=== PATIENT | female | born 1970 | race Caucasian/White ===

== ENCOUNTER 2017-05-06 21:22 | Inpatient (IN) | payer OTHER, SELFPAY ==
[~2017-05-06 21:22] MED LIST: ISOVUE-370 76%-LOCM 1 ML ONE
[2017-05-06] MEDS ORDERED: Acetaminophen 500 MG TAB ONE (22:16)
[2017-05-06 22:40] LABS: INR-International Normal Ratio 1.2; PTT 34.2 SEC (22.9-36.1); Prothrombin Time 15.4 SEC (12.0-14.7)
[2017-05-06 22:53] LABS: ALT (SGPT) 33 U/L (8-55); AST (SGOT) 28 U/L (5-34); Albumin 3.5 g/dL (3.5-5.0); Alkaline Phosphatase 125 U/L (40-150); Anion Gap 13 mmol/L (10-20); BUN (Urea Nitrogen) 13 mg/dL (7.0-18.7); Bilirubin, Total 0.6 mg/dL (0.2-1.2); Calc. Creatinine Clearance 0 mL/min (70-130); Calcium 9.5 mg/dL (7.8-10.44); Carbon Dioxide 22 mmol/L (22-29); Chloride 105 mmol/L (98-107); Estimated GFR-MDRD 78; Globulin 3.1 g/dL (2.4-3.5); Glucose 168 mg/dL (70-105); Potassium 3.4 mmol/L (3.5-5.1); Protein, Total 6.6 g/dL (6.0-8.3); Sodium 137 mmol/L (136-145)
[2017-05-06 22:58] LABS: CKMB 0.5 ng/mL (0-6.6); Troponin I Less than 0.010 ng/mL (< 0.028)
--- NOTE | 2017-05-06 23:47 | CT ---
CT PELVIS WITH CONTRAST: 05/06/17 HISTORY: 46-year-old female with abscess of the left buttock, causing pain, swelling and fever. COMPARISON: None. FINDINGS: There is soft tissue density thickening at the intergluteal fold, especially the left side, with a tr ansverse dimension of approximately 2.5 cm, and density of 45 Hounsfield units. The soft tissue thick ening contiguosly involves the perineum. Adjacent to that, there is extensive fat stranding presentin g edema, in the fat of the left buttock lateral to the left intergluteal fold, with left sided skin t hickening. There is milder fat stranding representing edema in the contralateral right buttock fat. Within the left posterior aspect of the pelvic cavity, there is fat stranding and what appears to be a small amount of free fluid. There is a minimal amount of such free fluid in the contralateral right side. Urinary bladder is normal. The uterus is visualized, but no adnexal mass is identified. No sig ns of acute colonic diverticulitis. Normal appendix. No destructive osseous lesion. IMPRESSION: 1. Soft tissue thickening suggestive of cellulitis or phlegmon at the intergluteal fold, especia lly the left side, and edema in the surrounding fatty tissues of the buttocks, left greater than righ t. 2. No evidence of drainable abscess. POS: ALEJANDRA
[2017-05-07] MEDS ORDERED: Ondansetron HCl/PF 4 MG/2 ML Vial ONE (00:13)
[2017-05-07] MEDS ORDERED: Morphine 4 MG/ML VIAL ONE (00:13)
[2017-05-07 00:16] LABS: Bilirubin Negative (Negative); Blood, Urine Trace (Negative); Clarity CLEAR (Clear); Glucose, Urine (Dipstick) Negative (Negative); Leukocyte Negative (Negative); Nitrite Negative (Negative); Protein, Urine (Dipstick) Negative (Neg-Trace); Specific Gravity, Urine 1.027 (1.002-1.036); pH, Urine 5.5 (5.0-9.0)
[2017-05-07 00:19] LABS: Bacteria/HPF None Seen HPF (None Seen); Hyaline Casts/LPF 0-3 HYALINE CAST LPF (0-3 Hyaline); Squamous Epithelial 0-3 HPF (0-3); WBC/HPF 0-3 HPF (0-3)
[2017-05-07 00:28] LABS: Hemoglobin 12.7 g/dL (12.0-16.0); Mean Corpuscular Hemoglobin 28.3 pg (27.0-31.0); Mean Corpuscular Volume 85.9 fl (81.0-99.0); Mean Platelet Volume 7.9 fL (7.4-10.4); Platelet Count 217 thou/uL (130-400); RBC Distribution Width 13.3 % (11.5-14.5); Red Blood Cell (RBC) Count 4.47 mill/uL (4.20-5.40); White Blood Cell (WBC) Count 20.9 thou/uL (4.8-10.8)
[2017-05-07 00:44] LABS: Band 23 % (5-11); Eosinophils 2 % (0-10); Lymphocytes 5 % (21-51); MDiff Complete? YES; Monocytes 4 % (0-10); Neutrophil 66 % (42-75)
[2017-05-07] MEDS ORDERED: Ondansetron HCl/PF 4 MG/2 ML Vial IVP PRN (07:51)
[2017-05-07] MEDS ORDERED: Acetaminophen 325 MG TAB PO PRN (07:51)
[2017-05-07] MEDS ORDERED: Ondansetron ODT 4 MG TAB SL PRN (07:51)
[2017-05-07 08:02] VITALS: BMI 37.7
[2017-05-07] MEDS ORDERED: Dextrose 5% in Water 1,000 ML IV PRN (08:46)
[2017-05-07] MEDS ORDERED: Calcium Carbonate 500 MG ChewTAB PO PRN (08:46)
[2017-05-07] MEDS ORDERED: Mag-Al 1200 mg/1200 mg/30 ML UDCUP PO PRN (08:46)
[2017-05-07] MEDS ORDERED: Diabetic Tussin 200 MG/10 ML UDCUP PO PRN (08:46)
[2017-05-07] MEDS ORDERED: Loratadine 10 MG TAB PO PRN (08:46)
[2017-05-07] MEDS ORDERED: Bisacodyl 5 MG TAB PO PRN ×2 (08:46)
[2017-05-07] MEDS ORDERED: Senokot 8.6 MG TAB PO PRN ×2 (08:46)
[2017-05-07] MEDS ORDERED: Nitroglycerin 0.4 MG TAB (25 Tab Bottle) SL PRN (08:46)
[2017-05-07] MEDS ORDERED: Dextrose 50% Abboject 50 ML SYRINGE SLOW IVP PRN (08:46)
[2017-05-07] MEDS ORDERED: cloNIDine 0.1 MG TAB PO PRN (08:46)
[2017-05-07] MEDS ORDERED: Benzonatate 100 MG CAP PO PRN (08:46)
[2017-05-07] MEDS ORDERED: hydrALAZINE 20 MG/ML VIAL SLOW IVP PRN (08:46)
[2017-05-07] MEDS ORDERED: HumaLOG 300 UNITS/3 ML VIAL SC PRN ×2 (08:46)
[2017-05-07] MEDS ORDERED: Vancomycin HCl 1 GM in Premix Bag 1 BAG IVPB SCH (09:00)
[2017-05-07] MEDS: Acetaminophen 325 MG TAB PO PRN (09:08)
[2017-05-07] MEDS: Enoxaparin Sodium 40 MG/0.4 ML SYRINGE SC SCH (09:08)
[2017-05-07] MEDS ORDERED: FLU VACC QS2017-18 36 mo. & older 0.5 ML SYRINGE IM ONE (09:45)
[2017-05-07] MEDS: Clindamycin/D5W 300 MG/50 ML BAG IVPB SCH ×2 (09:56→12:05)
[2017-05-07] MEDS: traMADol HCl 50 MG TAB PO PRN ×2 (09:56→17:27)
[2017-05-07] MEDS: Saccharomyces boulardii 250 MG CAP PO SCH (10:24)
[2017-05-07] MEDS ORDERED: Potassium Chloride 20 MEQ TAB PO SCH (11:00)
[2017-05-07] MEDS: HYDROcodone/Acetaminophen 5/325 mg Tablet PO PRN ×3 (12:14→21:17)
[2017-05-07] MEDS ORDERED: Fluconazole In NaCl,Iso-Osm 200 MG in Premix Bag 1 BAG IVPB SCH (12:15)
--- NOTE | 2017-05-07 12:49 | HP ---
PRIMARY CARE PHYSICIAN: [facility]. CHIEF COMPLAINT: Pain, redness and warmth of the left buttock for 3 days. HISTORY OF PRESENTING ILLNESS: Ms. Bray is a pleasant 46-year-old female with past medical history of non-insulin dependent diabetes, hypothyroidism, chronic iron deficiency anemia and lupus as per the patient, who presented to the ER with the above-mentioned complaint. History is mainly obtained by the patient herself. According to Ms. Bray, she started to have redness and pain in the left butt cheek for the last 3 days. She reports that she always has diarrhea with her menstrual cycle and also has hemorrhoids and this was happening earlier this week again. This might be the inciting factor that she could recall. She started to have some low grade fevers 2 days ago. She denies any abdominal pain or chest pain. She was a little short of breath. She takes metformin for her diabetes. She denies any sick contacts. She denied any boils or trauma to her gluteal region. She denies any dysuria, frequency, urgency or hematuria. She denies any blood in her stools. Upon presentation to the emergency room, she was hemodynamically stable, but somewhat tachycardic with a heart rate of 132. Physical examination revealed erythema and warmth of the left buttock and she underwent a CT scan of the abdomen and pelvis. This showed cellulitis and phlegmon at the intergluteal fold, especially on the left side and edema in the surrounding fatty tissue without any evidence of drainable abscess. She was given vancomycin and is now being admitted for cellulitis. PAST MEDICAL HISTORY: 1. Hypothyroidism. 2. Noninsulin dependent diabetes mellitus. 3. Lupus. According to the patient, the patient was diagnosed at the age of 16 and was on Plaquenil and steroids at one point of time, but then she lost her insurance and is currently not on any medications. 4. Iron deficiency anemia. 5. Scoliosis. 6. Degenerative disk disorder. PAST SURGICAL HISTORY: 1. section x2. 2. Tubal ligation. PSYCHIATRIC HISTORY: Bipolar disorder and depression. SOCIAL HISTORY: No history of drug, tobacco or alcohol abuse. FAMILY HISTORY: No significant family history of premature coronary artery disease or stroke. ALLERGIES: Include; 1. ACETAMINOPHEN. 2. AMOXICILLIN. 3. HYDROCODONE. 4. LATEX. 5. PHENOBARBITAL. 6. SULFONAMIDES. CURRENT MEDICATIONS: Metformin 500 mg b.i.d., multivitamin daily, ferrous sulfate 325 mg b.i.d. and levothyroxine 50 mcg daily. REVIEW OF SYSTEMS: It is negative except for those mentioned in the history and physical. Constitutional: Weight loss or gain, ability to conduct usual activities. Skin: Rash, itching. Eyes: Double vision, pain. ENT/Mouth: Nose bleeding, neck stiffness, pain, tenderness. Cardiovascular: Palpitations, dyspnea on exertion, orthopnea. Respiratory: Shortness of breath, wheezing, cough, hemoptysis, fever or night sweats. Gastrointestinal: Poor appetite, abdominal pain, heartburn, nausea, vomiting, constipation, or diarrhea. Genitourinary: Urgency, frequency, dysuria, nocturia. Musculoskeletal: Pain, swelling. Neurologic/Psychiatric: Anxiety, depression. Allergy/Immunologic: Skin rash, bleeding tendency. LABORATORY DATA: Her CBC shows WBCs of 20.9 with 23% bands. Serum chemistries showed potassium of 3.4, blood sugar 160 and lactic acid 1.5. Urinalysis show 11-20 rbc's and trace blood. IMAGING DATA: CT scan of the abdomen and pelvis as per the HPI. PHYSICAL EXAMINATION: VITAL SIGNS: Most recent include temperature 97.5, heart rate 101, respirations 17, saturating 98% on room air and blood pressure 116/58. GENERAL: No acute distress, lying on the side of the cellulitis. Awake, alert and oriented x3. HEENT: Mucous membrane is moist and pink. No oropharyngeal exudate or erythema. Head is normocephalic and atraumatic. Pupils are equal, reactive to light and accommodation. Extraocular movements are intact. NECK: Supple without any lymphadenopathy, JVD or bruit. CHEST: Clear to auscultation without any wheezing, rales or rhonchi. Rate and rhythm is regular without any murmur, rubs or gallops. ABDOMEN: Soft, nontender and nondistended with positive bowel sounds. EXTREMITIES: Free of any cyanosis, clubbing or edema. GENITOURINARY: She has a diffuse rash with pitting on the left buttock. It extends and covers the entire buttock and extending anteriorly to involve the vulva bilaterally. It is hot and very tender to palpation. NEUROLOGIC: Nonfocal. PSYCHIATRIC: Normal affect. IMPRESSION AND PLAN: 1. Left buttock cellulitis and Sepsis.. She meets the sepsis criteria at this time. She will be started on broad-spectrum IV antibiotic with clindamycin. I will also add antifungal coverage as yeast infection can also not be ruled out in this area. She will also be started on some gentle IV fluids as her tachycardia has not completely resolved. She is encouraged for oral intake. Blood cultures have been obtained and we will follow the results though she does not look septicemic. She will be admitted on medical floor. 2. Diabetes mellitus. The patient will not be taking metformin as she has received dye for the CT scan. We will cover her with insulin sliding scale. 3. Iron deficiency anemia. Continue with ferrous sulfate. 4. Hypothyroidism. Continue with levothyroxine. 5. History of lupus. I have encouraged the patient to get a referral to Rheumatology as an outpatient. Unfortunately, she does not have insurance and it will be hard for her to get into the Rheumatology clinics. 6. Deep venous thrombosis and gastrointestinal prophylaxis. 7. Add p.r.n. medication and supportive care. DISPOSITION: Ms. Bray is currently being admitted for sepsis and buttock cellulitis. Estimated length of stay is more than 2 midnights at this time. MTDD
[2017-05-07] MEDS: Sodium Chloride 0.9% 1,000 ML IV SCH (13:42)
--- NOTE | 2017-05-07 15:52 | CON ---
DATE OF CONSULTATION: 05/07/2017 REASON FOR CONSULTATION: Inflammatory process of left gluteal region. HISTORY OF PRESENT ILLNESS: A 46-year-old patient who has a history of systemic lupus erythematosus diagnosed at [facility] in [place] at the age of 16. Apparently, she was treated with prednisone and Plaquenil and then going to her recollection, she had skin, kidney, and joint manifestations at that time. The patient has not taken medications over the past many years, still has some arthralgias, but no other manifestations may be some skin rash here and there. Patient also has a history of type 2 diabetes mellitus and developed inflammatory process in left gluteal region. She is not sure what happened. She thinks she might have been a spider bite. No recollection of any trauma to the area. She had some diarrhea which is intermittent and occurs usually with her menstrual cycle. There was progression in the pain and the swelling and she was admitted after evaluation in the emergency room. She also had also associated low grade temperature elevation. No headaches, visual symptoms, sore throat, odynophagia, dysphagia, no cough, no sputum production, no chest pain. No abdominal pain, diarrhea. No genitourinary symptoms. No joint symptoms. May be minor arthralgias. No neurological symptoms. PAST MEDICAL HISTORY: Hypothyroidism, type 2 diabetes, systemic lupus erythematosus diagnosed many years ago, not on therapy for quite a while without evidence of major recrudescence. PAST SURGICAL HISTORY: , tubal ligation. PSYCHIATRIC HISTORY: Bipolar disorder. ALLERGIES: ACETAMINOPHEN, PENICILLIN, LATEX, SULFONAMIDE. SOCIAL HISTORY: Noncontributory. 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 FAMILY HISTORY: Noncontributory. CURRENT MEDICATIONS: Clindamycin, Diflucan, metformin, multivitamins, levothyroxine, p.r.n. meds. PHYSICAL EXAMINATION: VITAL SIGNS: T-max 98.2, blood pressure 91/57, pulse 92, respirations 14, O2 sat 94%-98%. GENERAL: Appears in no distress. HEENT: Ocular movements are conjugate. Oral cavity normal. NECK: Supple. LUNGS: With symmetric clear breath sounds. HEART: S1, S2, regular rate. No S3, S4. ABDOMEN: Soft, nondistended or tender. No ascites. No bladder distention. EXTREMITIES: No joint inflammatory activity. Left gluteal region with area of induration and erythema measuring about 15 x 12 cm. Left gluteal fold extending inwards. Few pustules are noted on the surface of the skin. Pulses are 1+ in dorsalis pedis. She moves extremities equally. NEUROLOGIC: Cognitive function appears to be intact. LABORATORY DATA AND IMAGING DATA: White cell count 20.9, hemoglobin 12.7, platelets 270, 22% bands. Sodium 137, creatinine 0.8. Liver profile normal. Albumin 3.5. Urinalysis with 11-20 rbc's, 0-3 wbc's. Two sets of blood cultures are no growth to date. Urine culture no growth at 12 hours. She has had a pelvis CT which showed phlegmon described, but no obvious abscess. She has a wrist x-ray from last year with no abnormality noted. ASSESSMENT: 1. History of type 2 diabetes and history of systemic lupus erythematosus many years ago, not on treatment, and apparently in remission. 2. Abscess/phlegmon in left gluteal region. DISCUSSION: Most likely scenario is Staphylococcus aureus infection either MSSA or MRSA secondary to skin colonization by a pathogenic strain of Staph and minor skin injury or folliculitis. Switch her to iv vancomycin. Submit cultures from the areas of folliculitis. Transition to outpatient antimicrobial therapy once there is improvement in white cell count. May need surgical drainage eventually. Patient had blood cultures submitted and we will follow those to resolution. If blood cultures return positive, then she would require longer course of treatment. MTDD
[2017-05-07] MEDS ORDERED: Clindamycin/D5W 300 MG/50 ML BAG IVPB SCH (16:00)
[2017-05-07] MEDS: Vancomycin HCl 1.5 GM in Sodium Chloride 0.9% 250 ML 300 ML IVPB SCH (21:17)
[2017-05-07] MEDS: Nystatin Powder 15 GM BOT TOP SCH (21:19)
[2017-05-08] MEDS: Sodium Chloride 0.9% 1,000 ML IV SCH ×2 (02:58→17:19)
[2017-05-08] MEDS: HYDROcodone/Acetaminophen 5/325 mg Tablet PO PRN ×5 (04:24→20:58)
[2017-05-08 05:58] LABS: Anion Gap 13 mmol/L (10-20); BUN (Urea Nitrogen) 7 mg/dL (7.0-18.7); Calc. Creatinine Clearance 165 mL/min (70-130); Calcium 8.2 mg/dL (7.8-10.44); Carbon Dioxide 19 mmol/L (22-29); Chloride 111 mmol/L (98-107); Estimated GFR-MDRD 88; Glucose 97 mg/dL (70-105); Sodium 139 mmol/L (136-145)
[2017-05-08 06:22] LABS: Band 20 % (5-11); Eosinophils 2 % (0-10); Hemoglobin 10.9 g/dL (12.0-16.0); Lymphocytes 5 % (21-51); MDiff Complete? YES; Mean Corpuscular HGB CONC 32.3 g/dL (32.0-36.0); Mean Corpuscular Hemoglobin 28.3 pg (27.0-31.0); Mean Corpuscular Volume 87.6 fl (81.0-99.0); Mean Platelet Volume 7.4 fL (7.4-10.4); Metamyelocyte 1 % (0-0); Monocytes 14 % (0-10); Myelocyte 1 % (0-0); Neutrophil 57 % (42-75); PLT Morphology Comment Appears Adequate; Platelet Count 202 thou/uL (130-400); RBC Distribution Width 13.5 % (11.5-14.5); RBC Morphology Normal; Red Blood Cell (RBC) Count 3.86 mill/uL (4.20-5.40); White Blood Cell (WBC) Count 17.5 thou/uL (4.8-10.8)
[2017-05-08] MEDS: Vancomycin HCl 1.5 GM in Sodium Chloride 0.9% 250 ML 300 ML IVPB SCH ×2 (08:48→20:57)
[2017-05-08] MEDS: Ferrous Sulfate 325 MG TAB PO SCH (08:49)
[2017-05-08] MEDS: Multivit, Therapeutic 1 TAB PO SCH (08:49)
[2017-05-08] MEDS: Enoxaparin Sodium 40 MG/0.4 ML SYRINGE SC SCH (08:49)
[2017-05-08] MEDS: Saccharomyces boulardii 250 MG CAP PO SCH (08:57)
[2017-05-08] MEDS: Nystatin Powder 15 GM BOT TOP SCH ×2 (08:58→20:58)
[2017-05-08] MEDS ORDERED: Levothyroxine 100 MCG SDV FS SCH (09:00)
[2017-05-08] MEDS ORDERED: Non-Formulary Item 1 EACH (Multivitamin [Multi-Vitamin Daily] 1 TABLET) PO SCH (09:00)
[2017-05-08] MEDS ORDERED: Fluconazole 100 MG TAB PO SCH (09:00)
[2017-05-08] MEDS ORDERED: Non-Formulary Item 1 EACH (Ferrous Sulfate [Ferrous Sulfate] 325 MG) PO SCH (09:00)
--- NOTE | 2017-05-08 13:37 | PRG ---
DATE OF SERVICE: 05/08/2017 SUBJECTIVE: The patient is seen and examined at the bedside. She noticed some improvement. She is able to ambulate in the hallway. Her appetite is fair. She had bowel movements yesterday. OBJECTIVE: VITAL SIGNS: Blood pressure is 122/59, pulse is ranging from 95-118, temperature is 97.9, respirator y rate is 20, and pulse oximeter is 98% on room air. HEENT: Head is atraumatic, normocephalic. Eyes are PERRLA. Conjunctivae pinkish. Sclerae nonicter ic. Oral mucosa is moist. NECK: Supple, no lymphadenopathy. Thyroid is not palpable. LUNGS: Clear. HEART: S1, S2 normal, somewhat tachycardic. No S3, no S4, no murmur. ABDOMEN: Obese, soft, nontender. EXTREMITIES: Left buttock big approximately 8-10 inches x 8-10 inches indurated area. No open area present. NEUROLOGIC: She is alert and oriented x3. There is not any sensorimotor deficit present. Cranial n erves are intact. LABORATORY DATA: Showed white count is down to 17.5, hemoglobin 10.9, hematocrit 33.8, platelet coun t 102,000. Chemistry showed sodium of 139, potassium 4.0, chloride 111, CO2 19, BUN 7, creatinine 0. 72. Glycemia is ranging from 103 to 143. Microbiology showed bacterial culture of the left gluteal area showed gram positive cocci. Gram stain showed no WBCs, no organisms and 0-5 epithelial cells. IMPRESSION: 1. Left gluteal area phlegmon. 2. History of type 2 diabetes mellitus. 3. History of systemic lupus erythematosus, not on any current treatment. ASSESSMENT AND PLAN: The patient's condition is slightly improved. She was seen by Dr. Lemons who ch anged her antibiotic to vancomycin and ask for a surgical consultation. We awaiting for that. The f inal culture on her skin cellulitis is not back yet. We know it is gram positive cocci, but we do no t know whether it is MRSA or MSSA. We will continue vancomycin for now, we will continue current reg imen. Pain management. She is comfortable with the pain management at this point and we will contin ue her DVT prophylaxis with SCDs and Lovenox.
--- NOTE | 2017-05-08 15:50 | PRG ---
DATE OF SERVICE: 05/08/2017 SUBJECTIVE: Feeling about the same. Pain is still there are and quite significant. No respiratory symptoms or abdominal pain. Voiding without difficulty. OBJECTIVE: VITAL SIGNS: T-max 97.9, pulse 118, BP 123/59, temperature normal. SKIN: The skin exam shows the area of induration phlegmon extending towards the lower aspect of the left labia majora. The area is bit more consolidated now in terms of the induration. No obvious jennifer inage spots. LUNGS: Clear. S1, S2, regular rate. ABDOMEN: Soft, not distended, no bladder distention. LABORATORY DATA: White cell count 17.5, hemoglobin 10.7, platelets 202. Culture with gram positive cocci retrieved from the culture submitted yesterday. ASSESSMENT AND DISCUSSION: Likely abscess left gluteal region. We will request surgical consultatio n. Eventually probably will need a surgical I&D. Continue vancomycin until have the final results o f the identification and susceptibility testing for the organism.
[2017-05-08 20:22] LABS: Vancomycin, Trough 10.9 ug/mL
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
[2017-05-09] MEDS: Sodium Chloride 0.9% 1,000 ML IV SCH (00:09)
[2017-05-09] MEDS: HYDROcodone/Acetaminophen 5/325 mg Tablet PO PRN (01:15)
[2017-05-09] MEDS: Levothyroxine Sodium 50 MCG TAB PO SCH (06:08)
[2017-05-09 06:16] LABS: Band 10 % (5-11); Eosinophils 2 % (0-10); Hemoglobin 10.9 g/dL (12.0-16.0); Lymphocytes 7 % (21-51); MDiff Complete? YES; Mean Corpuscular Hemoglobin 27.7 pg (27.0-31.0); Mean Corpuscular Volume 86.5 fl (81.0-99.0); Mean Platelet Volume 6.8 fL (7.4-10.4); Monocytes 10 % (0-10); Neutrophil 71 % (42-75); PLT Morphology Comment Appears Adequate; Platelet Count 250 thou/uL (130-400); RBC Distribution Width 13.4 % (11.5-14.5); Red Blood Cell (RBC) Count 3.94 mill/uL (4.20-5.40); White Blood Cell (WBC) Count 17.1 thou/uL (4.8-10.8)
[2017-05-09] MEDS ORDERED: PROPOFOL 200 MG/20 ML VIAL ONE (06:35)
[2017-05-09] MEDS ORDERED: Dexamethasone 20 MG/5 ML VIAL ONE (06:35)
[2017-05-09] MEDS ORDERED: Lidocaine 1% PF 5 ML VIAL ONE (06:35)
[2017-05-09] MEDS ORDERED: Glycopyrrolate 0.2 MG/ML 5 ML SYRINGE ONE (06:35)
[2017-05-09] MEDS ORDERED: Ondansetron HCl/PF 4 MG/2 ML Vial ONE ×2 (06:35→11:11)
[2017-05-09] MEDS ORDERED: Ketorolac Tromethamine 30 MG/ML VIAL ONE (06:35)
[2017-05-09] MEDS ORDERED: Vancomycin HCl 1.75 GM in Sodium Chloride 0.9% 500 ML IVPB SCH (09:00)
[2017-05-09] MEDS: Morphine 5 MG/ML SYRINGE SLOW IVP PRN (09:28)
[2017-05-09] MEDS: Multivit, Therapeutic 1 TAB PO SCH (09:34)
[2017-05-09] MEDS: Enoxaparin Sodium 40 MG/0.4 ML SYRINGE SC SCH (09:34)
[2017-05-09] MEDS: Ferrous Sulfate 325 MG TAB PO SCH (09:34)
[2017-05-09] MEDS: Saccharomyces boulardii 250 MG CAP PO SCH (09:35)
[2017-05-09] MEDS: Nystatin Powder 15 GM BOT TOP SCH ×2 (10:12→22:52)
[2017-05-09] MEDS ORDERED: Fentanyl 250 MCG/5 ML VIAL ONE (11:11)
[2017-05-09] MEDS ORDERED: Bupivacaine HCl 0.5%/Epinephrine 1:200,000/PF 30 ml Vial ONE (11:14)
[2017-05-09] MEDS ORDERED: Lidocaine 2% 10 ML INJ ONE (11:14)
[2017-05-09] MEDS ORDERED: Promethazine HCl 25 MG/ML VIAL SLOW IVP PRN (12:32)
[2017-05-09] MEDS ORDERED: Ondansetron HCl/PF 4 MG/2 ML Vial IVP PRN (12:32)
[2017-05-09] MEDS ORDERED: Promethazine HCl 25 MG/ML VIAL IM PRN (12:32)
[2017-05-09] MEDS ORDERED: Ibuprofen 600 MG TAB PO PRN (12:39)
[2017-05-09] MEDS ORDERED: Acetaminophen 500 MG TAB PO PRN (12:39)
[2017-05-09] MEDS ORDERED: traMADol HCl 50 MG TAB PO PRN (12:39)
--- NOTE | 2017-05-09 12:39 | PDOC.PN ---
- Subjective Encounter Start Date: 05/09/17 Encounter Start Time: 09:15 -: old records requested/rev Patient seen and examined. No new complaints. No overnight events - Objective MAR Reviewed: Yes Vital Signs & Weight: Vital Signs (12 hours) Temp Pulse Resp BP Pulse Ox 05/09/17 08:56 98.3 F 66 20 123/73 93 L 05/09/17 07:45 98.0 F 97 18 05/09/17 04:00 98.0 F 97 18 107/55 L Weight Weight 233 lb 11.04 oz I&O: 05/08/17 05/09/17 05/10/17 06:59 06:59 06:59 Intake Total 1850 2680 Balance 1850 2680 Result Diagrams: 05/09/17 05:28 05/08/17 05:26 Additional Labs: Accuchecks 05/09/17 05/09/17 05/08/17 09:08 05:45 21:12 POC Glucose 98 102 127 H 05/08/17 16:57 POC Glucose 99 Phys Exam - Physical Examination Constitutional: NAD HEENT: PERRLA, moist MMs, sclera anicteric Neck: no JVD, supple Respiratory: no wheezing, no rales, no rhonchi Cardiovascular: RRR, no significant murmur, no rub Gastrointestinal: soft, non-tender, no distention, positive bowel sounds Musculoskeletal: no edema, pulses present Neurological: non-focal, normal sensation Lymphatic: no nodes Psychiatric: normal affect, A&O x 3 Skin: no rash, normal turgor Dx/Plan (1) Abscess, gluteal, left Code(s): L02.31 - CUTANEOUS ABSCESS OF BUTTOCK Status: Acute (2) Sepsis Code(s): A41.9 - SEPSIS, UNSPECIFIED ORGANISM Status: Acute (3) Anemia, normocytic normochromic Code(s): D64.9 - ANEMIA, UNSPECIFIED Status: Chronic (4) Obesity (BMI 30-39.9) Code(s): E66.9 - OBESITY, UNSPECIFIED Status: Chronic - Plan cont current plan of care, continue antibiotics * today plan for I & D * continue IV antibiotics as per dr herrera * wound care * medication reviewed as below * symptomatic treatment * pain control * follow culture. Review of Systems - Review of Systems ENT: negative: Ear Pain, Ear Discharge, Nose Pain, Nose Discharge, Nose Congestion, Mouth Pain, Mouth Swelling, Throat Pain, Throat Swelling, Other Respiratory: negative: Cough, Dry, Shortness of Breath, Hemoptysis, SOB with Excertion, Pleuritic Pain, Sputum, Wheezing Cardiovascular: negative: chest pain, palpitations, orthopnea, paroxysmal nocturnal dyspnea, edema, light headedness, other Gastrointestinal: negative: Nausea, Vomiting, Abdominal Pain, Diarrhea, Constipation, Melena, Hematochezia, Other Genitourinary: negative: Dysuria, Frequency, Incontinence, Hematuria, Retention , Other Musculoskeletal: negative: Neck Pain, Shoulder Pain, Arm Pain, Back Pain, Hand Pain, Leg Pain, Foot Pain, Other Skin: negative: Rash, Lesions, Nato, Bruising, Other - Medications/Allergies Allergies/Adverse Reactions: Allergies Allergy/AdvReac Type Severity Reaction Status Date / Time Penicillins Allergy Mild Verified 05/07/17 08:07 latex Allergy Unknown Verified 05/07/17 08:07 phenobarbital Allergy Unknown Verified 05/07/17 08:07 amoxicillin Allergy Verified 05/07/17 08:07 Sulfa (Sulfonamide Allergy Verified 05/07/17 08:07 Antibiotics) Medications: Current Medications Acetaminophen (Tylenol) 650 mg PO Q4H PRN PRN Reason: Headache/Fever or Pain Last Admin: 05/07/17 09:08 Dose: 650 mg Hydrocodone Bitart/Acetaminophen ([place] 5/325) 1 tab PO Q4H PRN PRN Reason: Moderate Pain (4-6) Last Admin: 05/09/17 01:15 Dose: 1 tab Al Hydroxide/Mg Hydroxide (Maalox) 30 ml PO Q6H PRN PRN Reason: Heartburn or Indigestion Benzonatate (Tessalon) 100 mg PO Q4H PRN PRN Reason: Cough Bisacodyl (Dulcolax) 10 mg PO DAILYPRN PRN PRN Reason: Constipation Last Admin: 05/07/17 16:54 Dose: 10 mg Calcium Carbonate (Tums) 1,000 mg PO Q4H PRN PRN Reason: Heartburn or Indigestion Clonidine (Catapres) 0.1 mg PO Q4H PRN PRN Reason: Systolic BP > 160 Dextrose/Water (Dextrose 50%) 25 gm SLOW IVP PRN PRN PRN Reason: Hypoglycemia Enoxaparin Sodium (Lovenox) 40 mg SC 0900 [facility] Last Admin: 05/09/17 09:34 Dose: Not Given Fentanyl (Pacu-Sublimaze) 50 mcg SLOW IVP Q10MIN PRN PRN Reason: Moderate to Severe Pain (6-10) Stop: 05/09/17 15:32 Ferrous Sulfate (Feosol) 325 mg PO DAILY [facility] Last Admin: 05/09/17 09:34 Dose: Not Given Glucagon (Glucagon) 1 mg IM PRN PRN PRN Reason: Hypoglycemia Guaifenesin (Robitussin Sf) 200 mg PO Q4H PRN PRN Reason: Cough Hydralazine HCl (Apresoline) 10 mg SLOW IVP Q4H PRN PRN Reason: Systolic BP > 170 Dextrose/Water (D5w) 1,000 mls @ 0 mls/hr IV .Q0M PRN; As Directed PRN Reason: Hypoglycemia Sodium Chloride (Normal Saline 0.9%) 1,000 mls @ 75 mls/hr IV .[id number] [facility] Last Admin: 05/09/17 00:09 Dose: 1,000 mls Vancomycin HCl 1.75 gm/ Sodium (Chloride) 500 mls @ 250 mls/hr IVPB Q12HR [facility] Last Admin: 05/09/17 09:34 Dose: 500 mls Insulin Human Lispro (Humalog) 0 units SC .MODERATE SLIDING SC PRN PRN Reason: Moderate Correctional Scale Insulin Human Lispro (Humalog) 0 units SC .BEDTIME SLIDING SC PRN PRN Reason: Bedtime Correctional Scale Levothyroxine Sodium (Synthroid) 50 mcg PO 0600 [facility] Last Admin: 05/09/17 06:08 Dose: 50 mcg Loratadine (Claritin) 10 mg PO DAILYPRN PRN PRN Reason: Sinus Symptoms Miscellaneous Medication (Pharmacy To Dose) 0 each IVPB ASDIR [facility] Morphine Sulfate (Morphine) 4 mg SLOW IVP Q4H PRN PRN Reason: Pain Last Admin: 05/09/17 09:28 Dose: 4 mg Multivitamins (Theragran) 1 tab PO DAILY [facility] Last Admin: 05/09/17 09:34 Dose: Not Given Nitroglycerin (Nitrostat) 0.4 mg SL Q5MIN PRN PRN Reason: Chest Pain Nystatin (Mycostatin Powder) 1 gm TOP BID [facility] Last Admin: 05/09/17 10:12 Dose: Not Given Ondansetron HCl (Zofran) 4 mg IVP Q6H PRN PRN Reason: Nausea/Vomiting Ondansetron HCl (Pacu-Zofran) 4 mg IVP ONE PRN PRN Reason: Nausea/Vomiting Stop: 05/09/17 15:32 Promethazine HCl (Pacu-Phenergan) 6.25 mg SLOW IVP ONE PRN PRN Reason: Nausea/Vomiting Stop: 05/09/17 15:32 Promethazine HCl (Pacu-Phenergan) 6.25 mg IM ONE PRN PRN Reason: Nausea/Vomiting Stop: 05/09/17 15:32 Saccharomyces Boulardii (Florastor) 250 mg PO DAILY [facility] Last Admin: 05/09/17 09:35 Dose: Not Given Senna (Senokot) 2 tab PO HSPRN PRN PRN Reason: Constipation Sodium Chloride (Flush - Normal Saline) 10 ml IVF Q12HR [facility] Last Admin: 05/09/17 09:35 Dose: Not Given Sodium Chloride (Flush - Normal Saline) 10 ml IVF PRN PRN PRN Reason: Saline Flush Tramadol HCl (Ultram) 50 mg PO Q4H PRN PRN Reason: Moderate Pain (4-6) Last Admin: 05/07/17 17:27 Dose: 50 mg
--- NOTE | 2017-05-09 15:57 | OP ---
DATE OF PROCEDURE: 05/09/2017 PREOPERATIVE DIAGNOSES: Left buttock abscess (seen yesterday, but not n.p.o.) and morbid obesity. PROCEDURE: Incision and drainage of left buttock abscess, wound 13 x 6 cm, not amenable to VAC dress ing. SURGEON: Zana Lopez M.D. ANESTHESIA: General. Local 0.5% Marcaine with epinephrine, 30 mL, mixed with 2% Xylocaine, 10 mL an d wound care. This wound packing will be left in place today, Friday. She can wash the wound with soap and water a nd bath (or in the hospital Sitz bath) or in the shower. While removing the packing, wash it with so ap and water. Do not replace packing, instead wash it daily with soap and water in the bath or showe r beginning tomorrow and use a Kotex pad or ABD pad to control the drainage. Follow up in my office in 1-2 weeks. She can be discharged home with oral antibiotics. She will be discharged home at any time. PROCEDURE IN DETAIL: Patient taken to the operating room under general anesthesia in the dorsal lith otomy position, her buttocks and vaginal area prepared with Betadine, draped in routine fashion in le ft buttock/perineal area. Incision made and carried down through the skin and subcutaneous tissue, d raining out multiple loculated abscess, contents not consistent with perirectal abscess. This is mor e of buttock skin and subcutaneous tissue problem. Wound irrigated. Local anesthetic mixture infilt rated into skin and subcutaneous tissue. Hemostasis gained with cautery. Wound packed open with gau ze dressing. The patient tolerated the procedure well.
[2017-05-09] MEDS: Ciprofloxacin 500 MG TAB PO SCH (20:23)
[2017-05-09] MEDS ORDERED: Sulfameth/Trimethoprim DS 800-160mg TAB PO SCH (21:00)
[2017-05-10] MEDS: Levothyroxine Sodium 50 MCG TAB PO SCH (05:40)
[2017-05-10] MEDS: Ciprofloxacin 500 MG TAB PO SCH (05:40)
[2017-05-10] MEDS: traMADol HCl 50 MG TAB PO PRN ×2 (05:54→18:07)
[2017-05-10] MEDS: Ondansetron HCl/PF 4 MG/2 ML Vial IVP PRN (08:22)
[2017-05-10] MEDS: Morphine 5 MG/ML SYRINGE SLOW IVP PRN (08:23)
[2017-05-10] MEDS ORDERED: VANCOMYCIN IVPB PRN (08:36)
[2017-05-10 09:40] LABS: Anion Gap 14 mmol/L (10-20); BUN (Urea Nitrogen) 7 mg/dL (7.0-18.7); CRP (Inflammatory) 19.82 mg/dL (= or < 0.5); Calc. Creatinine Clearance 159 mL/min (70-130); Calcium 8.7 mg/dL (7.8-10.44); Carbon Dioxide 24 mmol/L (22-29); Chloride 106 mmol/L (98-107); Estimated GFR-MDRD 84; Glucose 105 mg/dL (70-105); Potassium 4.2 mmol/L (3.5-5.1); Sodium 140 mmol/L (136-145)
[2017-05-10 09:41] LABS: Hemoglobin 11.5 g/dL (12.0-16.0); Mean Corpuscular HGB CONC 31.2 g/dL (32.0-36.0); Mean Corpuscular Hemoglobin 27.1 pg (27.0-31.0); Mean Corpuscular Volume 86.9 fl (81.0-99.0); Mean Platelet Volume 6.5 fL (7.4-10.4); Platelet Count 360 thou/uL (130-400); RBC Distribution Width 13.6 % (11.5-14.5); Red Blood Cell (RBC) Count 4.24 mill/uL (4.20-5.40); White Blood Cell (WBC) Count 14.8 thou/uL (4.8-10.8)
[2017-05-10 09:55] LABS: Band 8 % (5-11); Lymphocytes 12 % (21-51); MDiff Complete? YES; Metamyelocyte 1 % (0-0); Monocytes 11 % (0-10); Neutrophil 68 % (42-75); PLT Morphology Comment Appears Adequate; RBC Morphology Normal
[2017-05-10] MEDS ORDERED: Vancomycin HCl 1.75 GM in Sodium Chloride 0.9% 500 ML IVPB SCH (10:00)
--- NOTE | 2017-05-10 11:11 | PDOC.PN ---
- Subjective Encounter Start Date: 05/10/17 Encounter Start Time: 09:10 Patient seen and examined. No new complaints. No overnight events - Objective MAR Reviewed: Yes Vital Signs & Weight: Vital Signs (12 hours) Temp Pulse Resp BP BP Pulse Ox 05/10/17 08:00 97.3 F L 92 18 116/55 L 95 05/10/17 05:40 98.3 F 95 20 112/58 L 95 05/10/17 00:45 98.1 F 100 16 100/55 L 94 L Weight Weight 233 lb 11.04 oz I&O: 05/09/17 05/10/17 05/11/17 06:59 06:59 06:59 Intake Total 2680 1575 Output Total 1200 Balance 2680 375 Result Diagrams: 05/10/17 09:14 05/10/17 09:14 Additional Labs: Accuchecks 05/10/17 05/09/17 05/09/17 05:48 22:28 16:36 POC Glucose 114 H 124 H 125 H Phys Exam - Physical Examination Constitutional: NAD HEENT: PERRLA, moist MMs, sclera anicteric Neck: no JVD, supple Respiratory: no wheezing, no rales, no rhonchi Cardiovascular: RRR, no significant murmur, no rub Gastrointestinal: soft, non-tender, no distention, positive bowel sounds Musculoskeletal: no edema, pulses present Neurological: non-focal, normal sensation, moves all 4 limbs Lymphatic: no nodes Psychiatric: normal affect, A&O x 3 Skin: no rash, normal turgor Dx/Plan (1) Abscess, gluteal, left Code(s): L02.31 - CUTANEOUS ABSCESS OF BUTTOCK Status: Acute (2) Sepsis Code(s): A41.9 - SEPSIS, UNSPECIFIED ORGANISM Status: Acute (3) Anemia, normocytic normochromic Code(s): D64.9 - ANEMIA, UNSPECIFIED Status: Chronic (4) Obesity (BMI 30-39.9) Code(s): E66.9 - OBESITY, UNSPECIFIED Status: Chronic (5) Asthma Code(s): J45.909 - UNSPECIFIED ASTHMA, UNCOMPLICATED Status: Chronic (6) Diabetes type 2, controlled Code(s): E11.9 - TYPE 2 DIABETES MELLITUS WITHOUT COMPLICATIONS Status: Chronic - Plan cont current plan of care, continue antibiotics * cipro and bactrim is not working * pt is allergic to PCN * will restart vancomycin * add ventolin nebs as needed * pain controlled * repeat labs today * medication reviewed as below * symptomatic treatment. Review of Systems - Review of Systems Constitutional: negative: fever, chills, sweats, weakness, malaise, other ENT: negative: Ear Pain, Ear Discharge, Nose Pain, Nose Discharge, Nose Congestion, Mouth Pain, Mouth Swelling, Throat Pain, Throat Swelling, Other Respiratory: negative: Cough, Dry, Shortness of Breath, Hemoptysis, SOB with Excertion, Pleuritic Pain, Sputum, Wheezing Cardiovascular: negative: chest pain, palpitations, orthopnea, paroxysmal nocturnal dyspnea, edema, light headedness, other Gastrointestinal: negative: Nausea, Vomiting, Abdominal Pain, Diarrhea, Constipation, Melena, Hematochezia, Other Genitourinary: negative: Dysuria, Frequency, Incontinence, Hematuria, Retention , Other Musculoskeletal: negative: Neck Pain, Shoulder Pain, Arm Pain, Back Pain, Hand Pain, Leg Pain, Foot Pain, Other Skin: negative: Rash, Lesions, Nato, Bruising, Other - Medications/Allergies Allergies/Adverse Reactions: Allergies Allergy/AdvReac Type Severity Reaction Status Date / Time Penicillins Allergy Mild Verified 05/07/17 08:07 latex Allergy Unknown Verified 05/07/17 08:07 phenobarbital Allergy Unknown Verified 05/07/17 08:07 amoxicillin Allergy Verified 05/07/17 08:07 Sulfa (Sulfonamide Allergy Verified 05/07/17 08:07 Antibiotics) Medications: Current Medications Acetaminophen (Tylenol) 650 mg PO Q4H PRN PRN Reason: Headache/Fever or Pain Last Admin: 05/07/17 09:08 Dose: 650 mg Acetaminophen (Tylenol) 1,000 mg PO Q6H PRN PRN Reason: Moderate to Severe Pain (6-10) Al Hydroxide/Mg Hydroxide (Maalox) 30 ml PO Q6H PRN PRN Reason: Heartburn or Indigestion Benzonatate (Tessalon) 100 mg PO Q4H PRN PRN Reason: Cough Bisacodyl (Dulcolax) 10 mg PO DAILYPRN PRN PRN Reason: Constipation Last Admin: 05/07/17 16:54 Dose: 10 mg Calcium Carbonate (Tums) 1,000 mg PO Q4H PRN PRN Reason: Heartburn or Indigestion Clonidine (Catapres) 0.1 mg PO Q4H PRN PRN Reason: Systolic BP > 160 Dextrose/Water (Dextrose 50%) 25 gm SLOW IVP PRN PRN PRN Reason: Hypoglycemia Enoxaparin Sodium (Lovenox) 40 mg SC 0900 [facility] Last Admin: 05/09/17 09:34 Dose: Not Given Ferrous Sulfate (Feosol) 325 mg PO DAILY [facility] Last Admin: 05/09/17 09:34 Dose: Not Given Glucagon (Glucagon) 1 mg IM PRN PRN PRN Reason: Hypoglycemia Guaifenesin (Robitussin Sf) 200 mg PO Q4H PRN PRN Reason: Cough Hydralazine HCl (Apresoline) 10 mg SLOW IVP Q4H PRN PRN Reason: Systolic BP > 170 Dextrose/Water (D5w) 1,000 mls @ 0 mls/hr IV .Q0M PRN; As Directed PRN Reason: Hypoglycemia Vancomycin HCl 1.75 gm/ Sodium (Chloride) 500 mls @ 250 mls/hr IVPB 1000,2200 [facility] Ibuprofen (Motrin) 600 mg PO Q6H PRN PRN Reason: Pain Insulin Human Lispro (Humalog) 0 units SC .MODERATE SLIDING SC PRN PRN Reason: Moderate Correctional Scale Insulin Human Lispro (Humalog) 0 units SC .BEDTIME SLIDING SC PRN PRN Reason: Bedtime Correctional Scale Levothyroxine Sodium (Synthroid) 50 mcg PO 0600 [facility] Last Admin: 05/10/17 05:40 Dose: 50 mcg Loratadine (Claritin) 10 mg PO DAILYPRN PRN PRN Reason: Sinus Symptoms Miscellaneous Medication (Pharmacy To Dose) 1 each IVPB PRN PRN PRN Reason: Pharmacy to dose Morphine Sulfate (Morphine) 4 mg SLOW IVP Q4H PRN PRN Reason: Pain Last Admin: 05/10/17 08:23 Dose: 4 mg Multivitamins (Theragran) 1 tab PO DAILY [facility] Last Admin: 05/09/17 09:34 Dose: Not Given Nitroglycerin (Nitrostat) 0.4 mg SL Q5MIN PRN PRN Reason: Chest Pain Nystatin (Mycostatin Powder) 1 gm TOP BID [facility] Last Admin: 05/09/17 22:52 Dose: Not Given Ondansetron HCl (Zofran) 4 mg IVP Q6H PRN PRN Reason: Nausea/Vomiting Last Admin: 05/10/17 08:22 Dose: 4 mg Polyethylene Glycol (Miralax) 17 gm PO DAILY [facility] Saccharomyces Boulardii (Florastor) 250 mg PO DAILY [facility] Last Admin: 05/09/17 09:35 Dose: Not Given Senna (Senokot) 2 tab PO HSPRN PRN PRN Reason: Constipation Sodium Chloride (Flush - Normal Saline) 10 ml IVF Q12HR [facility] Last Admin: 05/09/17 16:46 Dose: Not Given Sodium Chloride (Flush - Normal Saline) 10 ml IVF PRN PRN PRN Reason: Saline Flush Last Admin: 05/10/17 05:42 Dose: 10 ml Tramadol HCl (Ultram) 50 mg PO Q6H PRN PRN Reason: Pain Last Admin: 05/09/17 15:29 Dose: 50 mg Tramadol HCl (Ultram) 100 mg PO Q6H PRN PRN Reason: Pain Last Admin: 05/10/17 05:54 Dose: 100 mg
[2017-05-10] MEDS: Enoxaparin Sodium 40 MG/0.4 ML SYRINGE SC SCH (14:01)
[2017-05-10] MEDS: Ferrous Sulfate 325 MG TAB PO SCH (14:02)
[2017-05-10] MEDS: Nystatin Powder 15 GM BOT TOP SCH ×2 (14:02→21:00)
[2017-05-10] MEDS: Saccharomyces boulardii 250 MG CAP PO SCH (14:02)
[2017-05-10] MEDS: Multivit, Therapeutic 1 TAB PO SCH (14:03)
[2017-05-10] MEDS: Polyethylene Glycol 3350 17 GM Packet PO SCH (14:03)
[2017-05-10] MEDS: metFORMIN 500 MG TAB PO SCH (18:07)
[2017-05-11] MEDS: Vancomycin HCl 1.75 GM in Sodium Chloride 0.9% 500 ML IVPB SCH ×2 (02:07→14:02)
[2017-05-11] MEDS: traMADol HCl 50 MG TAB PO PRN ×3 (02:08→21:03)
[2017-05-11] MEDS: Levothyroxine Sodium 50 MCG TAB PO SCH (05:52)
[2017-05-11] MEDS: Ferrous Sulfate 325 MG TAB PO SCH (08:19)
[2017-05-11] MEDS: metFORMIN 500 MG TAB PO SCH ×2 (08:19→16:10)
[2017-05-11] MEDS: Multivit, Therapeutic 1 TAB PO SCH (08:19)
[2017-05-11] MEDS: Polyethylene Glycol 3350 17 GM Packet PO SCH (08:19)
[2017-05-11] MEDS: Saccharomyces boulardii 250 MG CAP PO SCH (08:19)
[2017-05-11] MEDS: Enoxaparin Sodium 40 MG/0.4 ML SYRINGE SC SCH (08:21)
[2017-05-11] MEDS: Nystatin Powder 15 GM BOT TOP SCH ×2 (08:22→21:40)
--- NOTE | 2017-05-11 10:36 | PDOC.PN ---
- Subjective Encounter Start Date: 05/11/17 Encounter Start Time: 09:40 Patient seen and examined. No new complaints. No overnight events - Objective MAR Reviewed: Yes Vital Signs & Weight: Vital Signs (12 hours) Temp Pulse Resp BP Pulse Ox 05/11/17 07:44 98.4 F 75 20 127/74 95 05/11/17 07:30 98.4 F 75 20 95 05/11/17 05:49 98.0 F 65 18 122/55 L Weight Weight 233 lb 11.04 oz I&O: 05/10/17 05/11/17 05/12/17 06:59 06:59 06:59 Intake Total 1575 2980 Output Total 1200 Balance 375 2980 Result Diagrams: 05/10/17 09:14 05/10/17 09:14 Additional Labs: Accuchecks 05/11/17 05/10/17 05/10/17 05:53 22:16 16:49 POC Glucose 91 110 118 H 05/10/17 11:42 POC Glucose 136 H Phys Exam - Physical Examination Constitutional: NAD HEENT: PERRLA, moist MMs, sclera anicteric Neck: no JVD, supple Respiratory: no wheezing, no rales, no rhonchi Cardiovascular: RRR, no significant murmur, no rub Gastrointestinal: soft, non-tender, no distention, positive bowel sounds Musculoskeletal: no edema, pulses present wound over buttock noted Neurological: non-focal, normal sensation, moves all 4 limbs Psychiatric: normal affect, A&O x 3 Skin: no rash, normal turgor Dx/Plan (1) Abscess, gluteal, left Code(s): L02.31 - CUTANEOUS ABSCESS OF BUTTOCK Status: Acute (2) Sepsis Code(s): A41.9 - SEPSIS, UNSPECIFIED ORGANISM Status: Acute (3) Anemia, normocytic normochromic Code(s): D64.9 - ANEMIA, UNSPECIFIED Status: Chronic (4) Obesity (BMI 30-39.9) Code(s): E66.9 - OBESITY, UNSPECIFIED Status: Chronic (5) Asthma Code(s): J45.909 - UNSPECIFIED ASTHMA, UNCOMPLICATED Status: Chronic (6) Diabetes type 2, controlled Code(s): E11.9 - TYPE 2 DIABETES MELLITUS WITHOUT COMPLICATIONS Status: Chronic - Plan cont current plan of care, continue antibiotics, [employer] school social science teacher * continue vancomycin * continue wound care * pain controlled * social work for wound care arrangement. * medication reviewed as below * symptomatic treatment Review of Systems - Review of Systems ENT: negative: Ear Pain, Ear Discharge, Nose Pain, Nose Discharge, Nose Congestion, Mouth Pain, Mouth Swelling, Throat Pain, Throat Swelling, Other Respiratory: negative: Cough, Dry, Shortness of Breath, Hemoptysis, SOB with Excertion, Pleuritic Pain, Sputum, Wheezing Cardiovascular: negative: chest pain, palpitations, orthopnea, paroxysmal nocturnal dyspnea, edema, light headedness, other Gastrointestinal: negative: Nausea, Vomiting, Abdominal Pain, Diarrhea, Constipation, Melena, Hematochezia, Other Genitourinary: negative: Dysuria, Frequency, Incontinence, Hematuria, Retention , Other Musculoskeletal: negative: Neck Pain, Shoulder Pain, Arm Pain, Back Pain, Hand Pain, Leg Pain, Foot Pain, Other Skin: negative: Rash, Lesions, Nato, Bruising, Other - Medications/Allergies Allergies/Adverse Reactions: Allergies Allergy/AdvReac Type Severity Reaction Status Date / Time Penicillins Allergy Mild Verified 05/07/17 08:07 latex Allergy Unknown Verified 05/07/17 08:07 phenobarbital Allergy Unknown Verified 05/07/17 08:07 amoxicillin Allergy Verified 05/07/17 08:07 Sulfa (Sulfonamide Allergy Verified 05/07/17 08:07 Antibiotics) Medications: Current Medications Acetaminophen (Tylenol) 650 mg PO Q4H PRN PRN Reason: Headache/Fever or Pain Last Admin: 05/07/17 09:08 Dose: 650 mg Acetaminophen (Tylenol) 1,000 mg PO Q6H PRN PRN Reason: Moderate to Severe Pain (6-10) Al Hydroxide/Mg Hydroxide (Maalox) 30 ml PO Q6H PRN PRN Reason: Heartburn or Indigestion Albuterol Sulfate (Ventolin) 2.5 mg NEB [id number] PRN PRN Reason: Wheezing Benzonatate (Tessalon) 100 mg PO Q4H PRN PRN Reason: Cough Bisacodyl (Dulcolax) 10 mg PO DAILYPRN PRN PRN Reason: Constipation Last Admin: 05/07/17 16:54 Dose: 10 mg Calcium Carbonate (Tums) 1,000 mg PO Q4H PRN PRN Reason: Heartburn or Indigestion Clonidine (Catapres) 0.1 mg PO Q4H PRN PRN Reason: Systolic BP > 160 Dextrose/Water (Dextrose 50%) 25 gm SLOW IVP PRN PRN PRN Reason: Hypoglycemia Enoxaparin Sodium (Lovenox) 40 mg SC 0900 [facility] Last Admin: 05/11/17 08:21 Dose: 40 mg Ferrous Sulfate (Feosol) 325 mg PO DAILY [facility] Last Admin: 05/11/17 08:19 Dose: 325 mg Glucagon (Glucagon) 1 mg IM PRN PRN PRN Reason: Hypoglycemia Guaifenesin (Robitussin Sf) 200 mg PO Q4H PRN PRN Reason: Cough Hydralazine HCl (Apresoline) 10 mg SLOW IVP Q4H PRN PRN Reason: Systolic BP > 170 Dextrose/Water (D5w) 1,000 mls @ 0 mls/hr IV .Q0M PRN; As Directed PRN Reason: Hypoglycemia Vancomycin HCl 1.75 gm/ Sodium (Chloride) 500 mls @ 250 mls/hr IVPB 0200,1400 [facility] Last Admin: 05/11/17 02:07 Dose: 500 mls Ibuprofen (Motrin) 600 mg PO Q6H PRN PRN Reason: Pain Insulin Human Lispro (Humalog) 0 units SC .MODERATE SLIDING SC PRN PRN Reason: Moderate Correctional Scale Insulin Human Lispro (Humalog) 0 units SC .BEDTIME SLIDING SC PRN PRN Reason: Bedtime Correctional Scale Levothyroxine Sodium (Synthroid) 50 mcg PO 0600 [facility] Last Admin: 05/11/17 05:52 Dose: 50 mcg Loratadine (Claritin) 10 mg PO DAILYPRN PRN PRN Reason: Sinus Symptoms Metformin HCl (Glucophage) 500 mg PO BID-[facility] Last Admin: 05/11/17 08:19 Dose: 500 mg Miscellaneous Medication (Pharmacy To Dose) 1 each IVPB PRN PRN PRN Reason: Pharmacy to dose Morphine Sulfate (Morphine) 4 mg SLOW IVP Q4H PRN PRN Reason: Pain Last Admin: 05/10/17 08:23 Dose: 4 mg Multivitamins (Theragran) 1 tab PO DAILY [facility] Last Admin: 05/11/17 08:19 Dose: 1 tab Nitroglycerin (Nitrostat) 0.4 mg SL Q5MIN PRN PRN Reason: Chest Pain Nystatin (Mycostatin Powder) 1 gm TOP BID [facility] Last Admin: 05/11/17 08:22 Dose: 1 gm Ondansetron HCl (Zofran) 4 mg IVP Q6H PRN PRN Reason: Nausea/Vomiting Last Admin: 05/10/17 08:22 Dose: 4 mg Polyethylene Glycol (Miralax) 17 gm PO DAILY [facility] Last Admin: 05/11/17 08:19 Dose: 17 gm Saccharomyces Boulardii (Florastor) 250 mg PO DAILY [facility] Last Admin: 05/11/17 08:19 Dose: 250 mg Senna (Senokot) 2 tab PO HSPRN PRN PRN Reason: Constipation Sodium Chloride (Flush - Normal Saline) 10 ml IVF Q12HR [facility] Last Admin: 05/11/17 02:09 Dose: 10 ml Sodium Chloride (Flush - Normal Saline) 10 ml IVF PRN PRN PRN Reason: Saline Flush Last Admin: 05/10/17 05:42 Dose: 10 ml Tramadol HCl (Ultram) 50 mg PO Q6H PRN PRN Reason: Pain Last Admin: 05/09/17 15:29 Dose: 50 mg Tramadol HCl (Ultram) 100 mg PO Q6H PRN PRN Reason: Pain Last Admin: 05/11/17 09:56 Dose: 100 mg
[2017-05-11] MEDS: Ondansetron HCl/PF 4 MG/2 ML Vial IVP PRN (14:11)
[2017-05-11] MEDS: Albuterol Sulfate 2.5 mg/3 ml Neb NEB PRN ×3 (15:09→23:58)
[2017-05-11] MEDS: Acetaminophen 325 MG TAB PO PRN (23:53)
[2017-05-12 01:50] LABS: Vancomycin, Trough 18.2 ug/mL
[2017-05-12] MEDS: Vancomycin HCl 1.75 GM in Sodium Chloride 0.9% 500 ML IVPB SCH ×2 (02:02→15:27)
[2017-05-12] MEDS: Levothyroxine Sodium 50 MCG TAB PO SCH (05:36)
[2017-05-12] MEDS: Saccharomyces boulardii 250 MG CAP PO SCH (08:03)
[2017-05-12] MEDS: metFORMIN 500 MG TAB PO SCH (08:03)
[2017-05-12] MEDS: Multivit, Therapeutic 1 TAB PO SCH (08:03)
[2017-05-12] MEDS: Ferrous Sulfate 325 MG TAB PO SCH (08:03)
[2017-05-12] MEDS: Nystatin Powder 15 GM BOT TOP SCH (08:04)
[2017-05-12] MEDS: Polyethylene Glycol 3350 17 GM Packet PO SCH (08:04)
[2017-05-12] MEDS: Enoxaparin Sodium 40 MG/0.4 ML SYRINGE SC SCH (08:04)
--- NOTE | 2017-05-12 11:35 | PDOC.PN ---
- Subjective Encounter Start Date: 05/12/17 Encounter Start Time: 09:30 Patient seen and examined. No new complaints. No overnight events - Objective MAR Reviewed: Yes Vital Signs & Weight: Vital Signs (12 hours) Temp Pulse Resp BP Pulse Ox 05/12/17 08:00 98.0 F 73 18 05/12/17 07:46 98.0 F 73 18 103/54 L 97 05/11/17 23:58 97 16 97 05/11/17 23:49 98.1 F 85 18 112/54 L 97 Weight Admit Weight 233 lb 11.04 oz Weight 233 lb 11.04 oz I&O: 05/11/17 05/12/17 05/13/17 06:59 06:59 06:59 Intake Total 2980 1490 Balance 2980 1490 Result Diagrams: 05/10/17 09:14 05/10/17 09:14 Additional Labs: Accuchecks 05/12/17 05/11/17 05/11/17 05:42 21:11 16:04 POC Glucose 95 103 109 Phys Exam - Physical Examination Constitutional: NAD HEENT: PERRLA, moist MMs, sclera anicteric Neck: no JVD, supple Respiratory: no wheezing, no rales, no rhonchi Cardiovascular: RRR, no significant murmur, no rub Gastrointestinal: soft, non-tender, no distention, positive bowel sounds Musculoskeletal: no edema, pulses present left buttock wound noted Neurological: non-focal, normal sensation, moves all 4 limbs Lymphatic: no nodes Psychiatric: normal affect, A&O x 3 Skin: no rash, normal turgor Dx/Plan (1) Abscess, gluteal, left Code(s): L02.31 - CUTANEOUS ABSCESS OF BUTTOCK Status: Acute (2) Sepsis Code(s): A41.9 - SEPSIS, UNSPECIFIED ORGANISM Status: Acute (3) Anemia, normocytic normochromic Code(s): D64.9 - ANEMIA, UNSPECIFIED Status: Chronic (4) Obesity (BMI 30-39.9) Code(s): E66.9 - OBESITY, UNSPECIFIED Status: Chronic (5) Asthma Code(s): J45.909 - UNSPECIFIED ASTHMA, UNCOMPLICATED Status: Chronic (6) Diabetes type 2, controlled Code(s): E11.9 - TYPE 2 DIABETES MELLITUS WITHOUT COMPLICATIONS Status: Chronic - Plan cont current plan of care, continue antibiotics, social services counselor * continue vancomycin * medication reviewed as below * symptomatic treatment * wound care. * doxycycline on discharge * social work for wound care arrangement Review of Systems - Review of Systems Constitutional: negative: fever, chills, sweats, weakness, malaise, other ENT: negative: Ear Pain, Ear Discharge, Nose Pain, Nose Discharge, Nose Congestion, Mouth Pain, Mouth Swelling, Throat Pain, Throat Swelling, Other Respiratory: negative: Cough, Dry, Shortness of Breath, Hemoptysis, SOB with Excertion, Pleuritic Pain, Sputum, Wheezing Cardiovascular: negative: chest pain, palpitations, orthopnea, paroxysmal nocturnal dyspnea, edema, light headedness, other Gastrointestinal: negative: Nausea, Vomiting, Abdominal Pain, Diarrhea, Constipation, Melena, Hematochezia, Other Genitourinary: negative: Dysuria, Frequency, Incontinence, Hematuria, Retention , Other Musculoskeletal: negative: Neck Pain, Shoulder Pain, Arm Pain, Back Pain, Hand Pain, Leg Pain, Foot Pain, Other Skin: negative: Rash, Lesions, Nato, Bruising, Other - Medications/Allergies Allergies/Adverse Reactions: Allergies Allergy/AdvReac Type Severity Reaction Status Date / Time Penicillins Allergy Mild Verified 05/07/17 08:07 latex Allergy Unknown Verified 05/07/17 08:07 phenobarbital Allergy Unknown Verified 05/07/17 08:07 amoxicillin Allergy Verified 05/07/17 08:07 Sulfa (Sulfonamide Allergy Verified 05/07/17 08:07 Antibiotics) Medications: Current Medications Acetaminophen (Tylenol) 650 mg PO Q4H PRN PRN Reason: Headache/Fever or Pain Last Admin: 05/11/17 23:53 Dose: 650 mg Acetaminophen (Tylenol) 1,000 mg PO Q6H PRN PRN Reason: Moderate to Severe Pain (6-10) Al Hydroxide/Mg Hydroxide (Maalox) 30 ml PO Q6H PRN PRN Reason: Heartburn or Indigestion Albuterol Sulfate (Ventolin) 2.5 mg NEB [id number] PRN PRN Reason: Wheezing Last Admin: 05/11/17 23:58 Dose: 2.5 mg Benzonatate (Tessalon) 100 mg PO Q4H PRN PRN Reason: Cough Bisacodyl (Dulcolax) 10 mg PO DAILYPRN PRN PRN Reason: Constipation Last Admin: 05/07/17 16:54 Dose: 10 mg Calcium Carbonate (Tums) 1,000 mg PO Q4H PRN PRN Reason: Heartburn or Indigestion Clonidine (Catapres) 0.1 mg PO Q4H PRN PRN Reason: Systolic BP > 160 Dextrose/Water (Dextrose 50%) 25 gm SLOW IVP PRN PRN PRN Reason: Hypoglycemia Enoxaparin Sodium (Lovenox) 40 mg SC 0900 [facility] Last Admin: 05/12/17 08:04 Dose: 40 mg Ferrous Sulfate (Feosol) 325 mg PO DAILY [facility] Last Admin: 05/12/17 08:03 Dose: 325 mg Glucagon (Glucagon) 1 mg IM PRN PRN PRN Reason: Hypoglycemia Guaifenesin (Robitussin Sf) 200 mg PO Q4H PRN PRN Reason: Cough Hydralazine HCl (Apresoline) 10 mg SLOW IVP Q4H PRN PRN Reason: Systolic BP > 170 Dextrose/Water (D5w) 1,000 mls @ 0 mls/hr IV .Q0M PRN; As Directed PRN Reason: Hypoglycemia Vancomycin HCl 1.75 gm/ Sodium (Chloride) 500 mls @ 250 mls/hr IVPB 0200,1400 [facility] Last Admin: 05/12/17 02:02 Dose: 500 mls Ibuprofen (Motrin) 600 mg PO Q6H PRN PRN Reason: Pain Insulin Human Lispro (Humalog) 0 units SC .MODERATE SLIDING SC PRN PRN Reason: Moderate Correctional Scale Insulin Human Lispro (Humalog) 0 units SC .BEDTIME SLIDING SC PRN PRN Reason: Bedtime Correctional Scale Levothyroxine Sodium (Synthroid) 50 mcg PO 0600 [facility] Last Admin: 05/12/17 05:36 Dose: 50 mcg Loratadine (Claritin) 10 mg PO DAILYPRN PRN PRN Reason: Sinus Symptoms Metformin HCl (Glucophage) 500 mg PO BID-[facility] Last Admin: 05/12/17 08:03 Dose: 500 mg Miscellaneous Medication (Pharmacy To Dose) 1 each IVPB PRN PRN PRN Reason: Pharmacy to dose Morphine Sulfate (Morphine) 4 mg SLOW IVP Q4H PRN PRN Reason: Pain Last Admin: 05/10/17 08:23 Dose: 4 mg Multivitamins (Theragran) 1 tab PO DAILY [facility] Last Admin: 05/12/17 08:03 Dose: 1 tab Nitroglycerin (Nitrostat) 0.4 mg SL Q5MIN PRN PRN Reason: Chest Pain Nystatin (Mycostatin Powder) 1 gm TOP BID [facility] Last Admin: 05/12/17 08:04 Dose: 1 gm Ondansetron HCl (Zofran) 4 mg IVP Q6H PRN PRN Reason: Nausea/Vomiting Last Admin: 05/11/17 14:11 Dose: 4 mg Polyethylene Glycol (Miralax) 17 gm PO DAILY [facility] Last Admin: 05/12/17 08:04 Dose: 17 gm Saccharomyces Boulardii (Florastor) 250 mg PO DAILY [facility] Last Admin: 05/12/17 08:03 Dose: 250 mg Senna (Senokot) 2 tab PO HSPRN PRN PRN Reason: Constipation Sodium Chloride (Flush - Normal Saline) 10 ml IVF Q12HR [facility] Last Admin: 05/12/17 08:04 Dose: 10 ml Sodium Chloride (Flush - Normal Saline) 10 ml IVF PRN PRN PRN Reason: Saline Flush Last Admin: 05/12/17 02:04 Dose: 10 ml Tramadol HCl (Ultram) 50 mg PO Q6H PRN PRN Reason: Pain Last Admin: 05/09/17 15:29 Dose: 50 mg Tramadol HCl (Ultram) 100 mg PO Q6H PRN PRN Reason: Pain Last Admin: 05/11/17 21:03 Dose: 100 mg
[2017-05-12 11:51] VITALS: BP 123/71; TEMP 97.1
[2017-05-12] MEDS: Albuterol Sulfate 2.5 mg/3 ml Neb NEB PRN (13:08)
[2017-05-12] MEDS: Acetaminophen 325 MG TAB PO PRN (13:32)
[2017-05-12 14:03] LABS: Mean Corpuscular HGB CONC 32.8 g/dL (32.0-36.0); Mean Corpuscular Hemoglobin 27.9 pg (27.0-31.0); Mean Platelet Volume 5.9 fL (7.4-10.4); Platelet Count 312 thou/uL (130-400); RBC Distribution Width 13.7 % (11.5-14.5); White Blood Cell (WBC) Count 12.3 thou/uL (4.8-10.8)
[2017-05-12 14:23] LABS: Band 16 % (5-11); Eosinophils 1 % (0-10); Lymphocytes 18 % (21-51); MDiff Complete? YES; Metamyelocyte 3 % (0-0); Monocytes 3 % (0-10); Myelocyte 2 % (0-0); Neutrophil 47 % (42-75); PLT Morphology Comment Appears Adequate; Polychromasia SLIGHT = 2-3 cells (100X) (0-2/hpf); Reactive Lymphocytes 9 % (0-10)
--- NOTE | 2017-05-12 16:22 | DIS ---
DATE OF ADMISSION: 05/07/2017 DATE OF DISCHARGE: 05/12/2017 PRIMARY CARE PHYSICIAN: [facility] admission, [facility] DISCHARGE DISPOSITION: Home. PRIMARY DISCHARGE DIAGNOSES: Left gluteal abscess, status post incision and drainage with cellulitis associated with sepsis, improved. SECONDARY DISCHARGE DIAGNOSES: Obesity with body mass index 37, diabetes type 2, asthma, anemia, nor mocytic, normochromic. PRIMARY PROCEDURE/OPERATION: I and D was performed by Dr. Lopez. RADIOLOGICAL INVESTIGATION: Pelvis CT scan. SIGNIFICANT LABORATORY DATA: Hemoglobin 12.0, WBC 12.3, platelet 312. INR 1.2, creatinine 0.75. Bl ood culture negative. Culture from abscess grew Staph aureus. DISCHARGE MEDICATIONS: Tylenol #3 one or two tablets p.o. q.6 hourly p.r.n., doxycycline 100 mg twic e daily for 15 days, ferrous sulfate 325 mg p.o. daily, Synthroid 50 mcg p.o. daily, metformin 500 mg p.o. b.i.d., multivitamin 1 tablet p.o. daily. CONTRAINDICATIONS: None. CODE STATUS: FULL CODE. INPATIENT CONSULTANTS: Dr. Lopez was following while in hospital. Dr. Lemons was consulted while in hospital. TEST RESULTS PENDING ON DISCHARGE: None. ALLERGIES: PENICILLIN, PHENOBARBITAL, AMOXICILLIN. DISCHARGE PLAN: Post hospital, the patient will follow up with Dr. Lopez in 10 days. The patient h as appointment with [facility] in 2-3 days. HOSPITAL COURSE: A 46-year-old female with above-mentioned medical problem who was admitted by Dr. Vaibhav chaudhari. Please see her H and P for further details. She was admitted for left gluteal abscess with surrounding cellulitis. She was treated with broad-spectrum antibiotic therapy including vancomycin and levofloxacin. Subsequently, Dr. Lemons changed to only vancomycin. Dr. Lopez was consulted for possible I and D and she did I and D and subsequently patient was taken care of by wound care team. Her wound culture grew Staph aureus. Based on culture and sensitivity result on discharge, we change d to doxycycline. At this point, Dr. Lopez recommended to do wound care with this wash with soap an d water and cover with the cortex. Her WBC count is smoothly improving. She remained afebrile while in hospital. Her pain is under control. She is ambulatory, tolerating p.o. well. Her diabetes is well controlled. The patient is medically stable for discharge today. The patient is seen and examined at bedside today. Please see my progress note from today for furthe r details.
--- NOTE | 2017-05-13 06:57 | PRG ---
DATE OF SERVICE: 05/12/2017 The patient is status post I&D, no packing was left. The base of the wound was cauterized. PHYSICAL EXAMINATION: HEENT: Ocular movements are conjugate. NECK: Supple. LUNGS: Symmetric clear breath sounds. CARDIOVASCULAR: S1, S2, regular rate. Labs are not remarkable. Cultures showed MSSA ASSESSMENT AND DISCUSSION: The patient could be switched to oral Keflex for discharge planning. Fol low up in the outpatient setting.
--- NOTE | 2017-05-25 00:25 | EKG ---
Test Reason : Blood Pressure : / mmHG Vent. Rate : 105 BPM Atrial Rate : 105 BPM P-R Int : 134 ms QRS Dur : 074 ms QT Int : 318 ms P-R-T Axes : 044 -01 025 degrees QTc Int : 420 ms Sinus tachycardia Low voltage QRS Borderline ECG Confirmed by NYA OVERTON ([id number]), online editor HIREN ANTHONY ([id number]) on 05/25/2017 12:24:29 AM Referred By: Confirmed By:NYA OVERTON
== END 2017-05-12 18:00 | disposition home or self-care (01) | DRG 854 ==
LOC: ERS 21:22 → OBSVTOIN 05-07 02:22 → ERHOLD 05-07 02:22 → 3SE 05-07 07:32
PROVIDERS: ADMIT Internal Medicine Infectious Disease; ATTEND Internal Medicine Infectious Disease
PROC: 0J990ZZ Drainage of Buttock Subcutaneous Tissue and Fascia, Open Approach (ICD-10-PCS; principal; 2017-05-09)
DX: A41.9 Sepsis, unspecified organism (principal); L02.31 Cutaneous abscess of buttock; E66.01 Morbid (severe) obesity due to excess calories; E03.9 Hypothyroidism, unspecified; E11.9 Type 2 diabetes mellitus without complications; D50.9 Iron deficiency anemia, unspecified; Z68.37 Body mass index [BMI] 37.0-37.9, adult; B95.61 Methicillin susceptible Staphylococcus aureus infection as the cause of diseases classified elsewhere
CPT/HCPCS: 36415; 36416; 72193; 80048; 80053; 80202; 81003; 81015; 82553; 83605; 84484; 85025; 85610; 85730; 86140; 87040; 87070; 87077; 87086; 87186; 87205; 93005; 94640; 96361; 96365; 96375; J2270; A4216; J0670; J1100; J1450; J1650; J1885; J2001; J2405; J2704; J3010; J3370; J3490; J7050; J7611

== ENCOUNTER 2018-07-02 12:07 | Emergency (ER) | payer SELFPAY ==
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
[2018-07-02] MEDS ORDERED: Ketorolac Tromethamine 30 MG/ML VIAL ONE (14:30)
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
--- NOTE | 2018-07-02 14:39 | CT ---
CT LUMBAR SPINE: DATE: 07/02/2018. PROVIDED CLINICAL HISTORY: Pain status post injury. FINDINGS: Lower lumbar spine facet arthritis changes are seen. Lumbar alignment appears normal. Vertebral bod y heights appear preserved. No evidence for a fracture. IMPRESSION: No evidence for an acute osseous abnormality. POS: [facility]
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
== END 2018-07-02 15:04 | disposition home or self-care (01) ==
LOC: ERS 12:07
DX: M25.552 Pain in left hip (principal); M54.5 Low back pain; M54.2 Cervicalgia; M25.511 Pain in right shoulder; M25.531 Pain in right wrist; J45.909 Unspecified asthma, uncomplicated; E03.9 Hypothyroidism, unspecified; D64.9 Anemia, unspecified; M81.0 Age-related osteoporosis without current pathological fracture; M32.9 Systemic lupus erythematosus, unspecified; F31.9 Bipolar disorder, unspecified; Y04.2XXA Assault by strike against or bumped into by another person, initial encounter; Y92.099 Unspecified place in other non-institutional residence as the place of occurrence of the external cause
CPT/HCPCS: 70450; 72125; 72131; 72170; 96372; J1885

== ENCOUNTER 2018-07-30 16:50 | Emergency (ER) | payer SELFPAY ==
[2018-07-30 17:26] LABS: #Basophils 0.1 thou/uL (0.0-0.2); #Eosinphils 0.5 thou/uL (0.0-0.7); #Lymphocytes 2.8 thou/uL (1.20-3.40); #Monocytes 0.8 thou/uL (0.11-0.59); #Neutrophils 6.1 thou/uL (1.40-6.50); %Basophils 0.5 % (0.0-1.0); %Eosinophils 4.5 % (0.0-10.0); %Lymphocytes 27.7 % (21.0-51.0); %Monocytes 7.8 % (0.0-10.0); %Neutrophils 59.5 % (42.0-75.0); Hemoglobin 13.9 g/dL (12.0-16.0); Mean Corpuscular HGB CONC 32.9 g/dL (32.0-36.0); Mean Platelet Volume 7.1 fL (7.4-10.4); Platelet Count 253 thou/uL (130-400); RBC Distribution Width 13.3 % (11.5-14.5); Red Blood Cell (RBC) Count 4.97 mill/uL (4.20-5.40); White Blood Cell (WBC) Count 10.2 thou/uL (4.8-10.8)
[2018-07-30] MEDS ORDERED: diphenhydrAMINE 50 MG/ML VIAL ONE (17:35)
[2018-07-30] MEDS ORDERED: Metoclopramide HCl 10 MG/2 ML VIAL ONE (17:35)
[2018-07-30 18:33] LABS: ALT (SGPT) 17 U/L (8-55); AST (SGOT) 16 U/L (5-34); Albumin 4.1 g/dL (3.5-5.0); Alkaline Phosphatase 93 U/L (40-150); Anion Gap 14 mmol/L (10-20); BUN (Urea Nitrogen) 11 mg/dL (7.0-18.7); Bilirubin, Total 0.5 mg/dL (0.2-1.2); CK (CPK) 63 U/L (29-168); Calc. Creatinine Clearance 0 mL/min (70-130); Calcium 9.3 mg/dL (7.8-10.44); Carbon Dioxide 23 mmol/L (22-29); Chloride 106 mmol/L (98-107); Estimated GFR-MDRD 77; Globulin 2.9 g/dL (2.4-3.5); Glucose 80 mg/dL (70-105); Potassium 3.7 mmol/L (3.5-5.1); Sodium 139 mmol/L (136-145)
--- NOTE | 2018-07-30 19:17 | CT ---
CT Abdomen Pelvis W Con: 07/30/2018 6:49 PM CLINICAL INFORMATION: Vaginal bleeding, abdominal pain, and emesis COMPARISON: None. TECHNIQUE: Multiple contiguous axial images were obtained and a CT of the abdomen and pelvis with IV contrast. C oronal reformats were performed. FINDINGS: Lower Chest: within normal limits. Abdomen: Liver: within normal limits. Bile Ducts: Normal caliber. Gallbladder: No calcified gallstones. Normal caliber wall. Pancreas: within normal limits. Spleen: within normal limits. Adrenals: within normal limits. Kidneys: within normal limits. Pelvis: Reproductive Organs: Unremarkable. A dominant follicle is seen in the left ovary measuring 2.8 cm in size. A tampon is seen in the vagina. Ureters: within normal limits. Bladder: within normal limits. Peritoneum: No ascites or free air, no fluid collection. Bowel: Normal caliber. Normal appendix. Mesentery and Retroperitoneum: No enlarged mesenteric or retroperitoneal lymph nodes. Vessels: Normal. Abdominal Wall: within normal limits. Bones: Degenerative changes in the spine. IMPRESSION: No evidence of acute intraabdominal\pelvic abnormality.
--- NOTE | 2018-07-30 19:34 | ULT ---
EXAM: Pelvic ultrasound HISTORY: Vaginal bleeding since 07/27/2018 with left lower quadrant abdominal pain COMPARISON: CT abdomen/pelvis 07/30/2018 TECHNIQUE: Multiple grayscale and color Doppler images were obtained in a transabdominal pelvic ultra sound. Spectral analysis of the Doppler waveforms of the ovaries were performed. FINDINGS: CERVIX: No evidence of nabothian cysts. UTERUS: Normal in size without focal abnormality. ENDOMETRIAL STRIPE: 6 mm. No free fluid is seen in the pelvis. RIGHT OVARY: Normal flow without focal mass. LEFT OVARY: Normal flow without focal mass. A dominant follicle measuring 3.4 cm is seen. IMPRESSION: No significant pelvic abnormality
[2018-07-30 19:54] LABS: Bilirubin Negative (Negative); Blood, Urine Negative (Negative); Clarity CLEAR (Clear); Glucose, Urine (Dipstick) Negative (Negative); Leukocyte Negative (Negative); Nitrite Negative (Negative); Protein, Urine (Dipstick) Negative (Neg-Trace); Specific Gravity, Urine 1.024 (1.002-1.036); Urobilinogen 0.2 mg/dL (0.2-1.0); pH, Urine 6.5 (5.0-9.0)
--- NOTE | 2018-08-01 10:28 | EKG ---
Test Reason : Blood Pressure : / mmHG Vent. Rate : 062 BPM Atrial Rate : 062 BPM P-R Int : 138 ms QRS Dur : 074 ms QT Int : 396 ms P-R-T Axes : 029 -08 001 degrees QTc Int : 401 ms Normal sinus rhythm Normal ECG Confirmed by NYA OVERTON ([id number]), web content editor JOANN HAJI ([id number]) on 08/01/2018 10:28:14 AM Referred By: Confirmed By:NYA OVERTON
== END 2018-07-30 22:00 | disposition home or self-care (01) ==
LOC: ERS 16:50
DX: N93.9 Abnormal uterine and vaginal bleeding, unspecified (principal); R10.9 Unspecified abdominal pain; R10.817 Generalized abdominal tenderness; E11.9 Type 2 diabetes mellitus without complications; J45.909 Unspecified asthma, uncomplicated; E03.9 Hypothyroidism, unspecified; D64.9 Anemia, unspecified; M81.0 Age-related osteoporosis without current pathological fracture; F32.9 Major depressive disorder, single episode, unspecified; Z79.84 Long term (current) use of oral hypoglycemic drugs; Z79.899 Other long term (current) drug therapy; V89.2XXA Person injured in unspecified motor-vehicle accident, traffic, initial encounter
CPT/HCPCS: 36415; 74177; 76856; 80053; 81003; 82550; 84484; 84702; 85025; 86900; 86901; 87077; 87086; 93005; 93976; 96365; 96366; 96375; J1200; J2765